=== PATIENT | female | born 1945 | race Caucasian/White ===

== ENCOUNTER → 2024-10-07 | Outpatient (CLI) | payer MEDICARE ==
--- NOTE | 2024-10-07 14:18 | MR ---
EXAMINATION TYPE: MR lumbar spine wo con DATE OF EXAM: 10/07/2024 10:37 AM COMPARISON: None. CLINICAL INDICATION: Female, 79 years old with history of S22.080A WEDGE COMPRESSION FRACTURE; PHH, p ain in center of lower back and sometimes on the left side TECHNIQUE: Multi planar, multi sequence imaging was performed utilizing: T1-weighted, T2-weighted, a nd turbo inversion recovery imaging of the lumbar spine. IV Contrast: mL (None, if empty) FINDINGS: Alignment: The lumbar vertebral bodies have preserved heights and alignment. Cord: The conus medullaris and the distal spinal cord appear unremarkable with regards to their signa l intensity and morphology. High T1 signal terminale filum lipoma suggested extending up to 7.3 cm in length and up to 3 mm in thickness. Bones/Discs: There is increased STIR signal within the T12 vertebral body with 50% height loss. No si gnificant retropulsion. Multilevel degeneration changes with osteophyte formation and facet joint art hropathy throughout the remainder this levels. There is biconcave deformity to L4 with up to 50% heig ht loss centrally no abnormal bony edema. Superior endplate deformity at L5 with up to 25% height los s.. T12-L1: No evidence of significant spinal canal stenosis or neural foraminal stenosis. L1-L2: No evidence of significant spinal canal stenosis or neural foraminal stenosis. L2-L3: No evidence of significant spinal canal stenosis or neural foraminal stenosis. L3-L4: No evidence of significant spinal canal stenosis. Facet joint arthropathy moderate bilateral n eural foraminal stenosis. L4-L5: No evidence of significant spinal canal stenosis. Facet joint arthropathy severe right and mod erate left neural foraminal stenosis. Extraforaminal osteophyte displaces the exiting right nerve. L5-S1: The disc has a rounded posterior morphology without significant spinal canal stenosis. Facet j oint arthropathy with moderate to severe bilateral neural foraminal stenosis. No significant spinal canal or neural foraminal stenosis in the remainder of the visualized levels. Other findings: None. IMPRESSION: 1. Acute/subacute T12 vertebral body compression fracture with up to 50% height loss. No evidence fo r significant spinal canal neural foraminal stenosis. 2. No definitive evidence of disc herniation or significant spinal canal stenosis. 3. Moderate to severe degeneration disc degeneration with associated osteoarthritic changes no anoop inal stenosis worse on the right at L4-L5 with severe right and on the left at L5-S1 with moderate to severe bilateral. 4. Incidental terminale filum lipoma. 5. L4-L5 right extraforaminal osteophyte displacing the exiting nerve. [facility], , 10/07/2024 2:15 PM
== END | disposition home or self-care (01) ==
LOC: RADMRIMAIN 09:38
PROVIDERS: ATTEND Orthopaedic Surgery
DX: S22.080A Wedge compression fracture of T11-T12 vertebra, initial encounter for closed fracture (principal); M51.26 Other intervertebral disc displacement, lumbar region; M25.78 Osteophyte, vertebrae; M51.360 Other intervertebral disc degeneration, lumbar region with discogenic back pain only
CPT/HCPCS: 72148

== ENCOUNTER → 2024-10-11 | Outpatient (CLI) | payer MEDICARE | END | disposition home or self-care (01) | LOC: RADXRMAIN 15:47 | PROVIDERS: ATTEND Nurse Practitioner | DX: Z53.9 Procedure and treatment not carried out, unspecified reason (principal) ==

== ENCOUNTER → 2024-10-12 | Outpatient (CLI) | payer MEDICARE ==
--- NOTE | 2024-10-13 09:20 | XR ---
EXAMINATION TYPE: XR scoliosis survey DATE OF EXAM: 10/12/2024 COMPARISON: NONE CLINICAL INDICATION: Female, 79 years old with history of R52 pain; TECHNIQUE: Thoracolumbar scoliosis survey FINDINGS: There is a scoliotic curvature of the thoracic spine convex to the right of 12 degrees. The re is associated degenerative narrowing and spondylosis. There is loss of height involving T12 of unc ertain age and/or etiology moderate in degree. There is scoliotic curvature of the lumbar spine convex to the left of 10 degrees. Associated moderat e to severe degenerative disc space narrowing and spondylosis. Facet joint arthropathy. IMPRESSION: Mild S-shaped scoliosis of the thoracolumbar spine. [facility], , 10/13/2024 9:18 AM
== END | disposition home or self-care (01) ==
LOC: RADXRMAIN 12:45
PROVIDERS: ATTEND Nurse Practitioner
DX: M41.85 Other forms of scoliosis, thoracolumbar region (principal)
CPT/HCPCS: 72082

== ENCOUNTER → 2024-11-07 | Outpatient (CLI) | payer MEDICARE ==
--- NOTE | 2024-11-08 07:58 | MR ---
EXAMINATION TYPE: MR lumbar spine wo con DATE OF EXAM: 11/07/2024 2:22 PM COMPARISON: 10/07/2024 CLINICAL INDICATION: Female, 79 years old with history of S22.080D WEDGE COMPRSN FX T11-T12 VERTEBRA, Rt side pain, T11-12 wedge fx, abnormal MRI in pacs TECHNIQUE: Multiplanar, multisequence images of the lumbar spine were acquired without IV contrast. FINDINGS: Redemonstrated anterior vertebral compression collapse of T12 with 50% anterior height loss and minim al retropulsion into the ventral spinal canal. There has been some recovery of fatty marrow signal del cid ggesting now more subacute injury. No progression and height loss. The interval is a superior endplate fracture of T11 without any significant height loss or retropulsi on. There is associated horizontal band of low T1-weighted signal and corresponding edema. There are chronic endplate deformities at both L4 and L5 redemonstrated. Moderate degenerative disc disease throughout with desiccated and bulging discs. These impress on the ventral thecal sac at multiple levels without significant spinal canal stenosis. Ligamentum flavum thickening mid and lower lumbar spine. Moderate hypertrophic facet arthropathy but the mid to lower lumbar spine. Trace grade 1 anterolisthesis L2-L3 is unchanged. On the right, changes resulting in moderate to severe neuroforaminal stenosis at L4-L5 with prominent abutment of the exiting right L4 nerve root. Mild to moderate neuroforaminal narrowing L5-S1 and mil d at L2-L3 and L3-L4. On the left, there is [id number] neuroforaminal narrowing at L5-S1 and mild at L2-L3, L3-L4, an d L4-L5. No prevertebral or paravertebral soft tissue body. Degenerated levoconvex curvature lumbar spine. The re appear to be susceptibility artifacts related to hip replacements. Conus medullaris is normal. Fatty filum redemonstrated. IMPRESSION: 1. Subacute anterior compression fracture at T12 with overall similar 50% anterior height loss. Resid ual mild edema, improving from 09/29/2024. 2. New/acute superior endplate fracture of T11 with a horizontal band of abnormal signal. No signific ant height loss and no retropulsion. 3. Chronic endplate deformities at L4 and L5. 4. Moderate degenerative disc disease throughout with moderate facet arthropathy. Degenerated levocon vex curvature lumbar spine. Trace grade 1 anterolisthesis L2-L3. 5. Bulging disks impress on the ventral thecal sac. No large focal disc herniation or significant spi nal canal stenosis. 6. Variable mild to moderate neuroforaminal stenoses in the mid and lower lumbar spine as outlined ab ove, similar to prior. Moderate to severe on the right at L4-L5 with prominent abutment of the exitin g right L4 nerve root. [facility], , 11/08/2024 7:55 AM
== END | disposition home or self-care (01) ==
LOC: RADMRIMAIN 13:41
PROVIDERS: ATTEND Nurse Practitioner
DX: S22.080D Wedge compression fracture of T11-T12 vertebra, subsequent encounter for fracture with routine healing (principal); M48.061 Spinal stenosis, lumbar region without neurogenic claudication; M51.369 Other intervertebral disc degeneration, lumbar region without mention of lumbar back pain or lower extremity pain; M47.816 Spondylosis without myelopathy or radiculopathy, lumbar region; M43.16 Spondylolisthesis, lumbar region; X58.XXXD Exposure to other specified factors, subsequent encounter
CPT/HCPCS: 72148